=== PATIENT | female | born 1995 | race African-American/Black ===

== ENCOUNTER 2016-12-24 08:47 | Emergency (ER) | payer SELFPAY ==
[~2016-12-24] VITALS: Ht 162.6 cm; Wt 53.5 kg
[2016-12-24 09:21] VITALS: BP 129/73
== END 2016-12-24 09:57 | disposition home or self-care (01) ==
LOC: ER 08:47 → EDBD 08:47 → ER 09:57
DX: L23.9 Allergic contact dermatitis, unspecified cause (principal); Z91.013 Allergy to seafood